=== PATIENT | female | born 1985 | race Caucasian/White ===

== ENCOUNTER → 2019-02-28 20:19 | Outpatient (CLI) | payer MEDICARE, MEDICAID ==
[2019-02-28 20:33] LABS: BASOPHILS 0.3 % (0-2); HEMOGLOBIN 11.5 g/dL (12-16); IMMATURE GRANULOCYTES 0.3 % (0-5); LYMPHOCYTES 37.2 % (15-50); MCHC 32.9 g/dL (31.0-37.0); MCV 85.2 fL (80.0-100.0); MEAN PLATELET VOLUME 9.5 fL (7.4-10.4); MONOCYTES 6.7 % (2-11); NEUTROPHILS 50.5 % (40-80); PLATELET COUNT 399 10x3/uL (130-400); RBC 4.11 10x6/uL (4.00-5.40); RDW 14.2 % (11.5-14.5); WBC 7.4 10x3/uL (4.8-10.8)
[2019-02-28 20:36] LABS: CREATININE - SERUM 0.8 mg/dL (0.6-1.3)
== END | disposition home or self-care (01) ==
LOC: D.LABREF 20:19
PROVIDERS: ATTEND Surgery
DX: Z98.84 Bariatric surgery status (principal)